=== PATIENT | male | born 1960 | race Caucasian/White ===

== ENCOUNTER 2020-11-05 14:57 | Inpatient (IN) | payer MEDICARE ==
[~2020-11-05] VITALS: Ht 172.7 cm; Wt 95.3 kg
--- NOTE | 2020-11-05 15:43 | NUR ---
PATIENT IS TACHY 89 AND IS HAVING DIFFICULTY BREATHING. PROVIDER HAS BEEN NOTIFIED.
[2020-11-05 17:05] LABS: HEMOGLOBIN 14.1 gm/dl (14.0-17.5); RED BLOOD COUNT 4.24 M/UL (4.20-5.50); WHITE BLOOD COUNT 10.2 K/UL (4.5-11.0)
[2020-11-05 17:31] LABS: BUN/CREATININE RATIO 16 (0-10)
--- NOTE | 2020-11-05 17:42 | NUR ---
CALLED PROVIDER TO INFORM OF CRITICAL LAB [facility] OF 8.7. WILL CONTINUE TO MONITOR
--- NOTE | 2020-11-05 23:48 | NUR ---
1st [facility] CRITICAL AT 8.7; MB% 2.8; ORDER TO RECHECK AFTER 6 HRS 2ND [facility] CRITICAL BUT IMPROVED AT 8.3; MB% ALSO IMPROVED AT 2.4
--- NOTE | 2020-11-06 00:50 | NUR ---
18G IN THE LEFT AC FOR CT WITH CONTRAST INSERTED;CALLED CT AND LET THEM KNOW AND TO CHECK ON STATUS. HE EXPLAINED PT'S ORDER WAS ROUTINE AND ER ORDERS ARE STAT AND HE IS 6 PT BEHIND. I EXPRESSED MY CONCERN AND ASK THAT HE LET ME KNOW IF HE COULD SQUEEZE HIM IN, I WOULD TRANSPORT HIM. AND HE SAID HE WOULD LET ME KNOW. WILL CONTINUE TO MONITOR PT STATUS.
[2020-11-06 04:10] LABS: HEMOGLOBIN 13.8 gm/dl (14.0-17.5); RED BLOOD COUNT 4.14 M/UL (4.20-5.50)
--- NOTE | 2020-11-06 04:16 | NUR ---
SENT COPY OF CT SCAN RESULTS TO DR. RODRIGUEZ; ORDER FOR ROCEPHIN 1G DAILY, AZITHROMYCIN 500MG DAILY.
[2020-11-06 04:33] LABS: BUN/CREATININE RATIO 19 (0-10)
[2020-11-06] MEDS ORDERED: METHADONE10 MG/1 ML PO (12:07)
[2020-11-07 05:59] LABS: HEMOGLOBIN 13.7 gm/dl (14.0-17.5); RED BLOOD COUNT 4.18 M/UL (4.20-5.50)
[2020-11-07 06:13] LABS: WHITE BLOOD COUNT 16.9 K/UL (4.5-11.0)
[2020-11-07 06:19] LABS: BUN/CREATININE RATIO 21 (0-10)
[2020-11-07 10:12] LABS: HBSAG SCREEN Negative (Negative); HEP A AB, IGM Negative (Negative); HEP B CORE AB, IGM Negative (Negative); HEP C VIRUS AB >11.0 (0.0-0.9)
[2020-11-08 05:15] LABS: HEMOGLOBIN 13.4 gm/dl (14.0-17.5); RED BLOOD COUNT 3.98 M/UL (4.20-5.50); WHITE BLOOD COUNT 12.2 K/UL (4.5-11.0)
[2020-11-08 05:53] LABS: BUN/CREATININE RATIO 22 (0-10)
[2020-11-09 06:13] LABS: HEMOGLOBIN 13.4 gm/dl (14.0-17.5); RED BLOOD COUNT 4.01 M/UL (4.20-5.50); WHITE BLOOD COUNT 12.6 K/UL (4.5-11.0)
[2020-11-09 06:29] LABS: BUN/CREATININE RATIO 21 (0-10)
[2020-11-10 03:44] LABS: HEMOGLOBIN 13.6 gm/dl (14.0-17.5); RED BLOOD COUNT 4.13 M/UL (4.20-5.50); WHITE BLOOD COUNT 11.3 K/UL (4.5-11.0)
[2020-11-10 04:09] LABS: BUN/CREATININE RATIO 24 (0-10)
--- NOTE | 2020-11-10 15:44 | NUR ---
SPOKE WITH PT'S AUDREY AND MADE HER AWARE THAT PT WAS BEING TRANSPORTED TO ICU, RM [phone]
[2020-11-11 05:36] LABS: BUN/CREATININE RATIO 24 (0-10)
[2020-11-11 07:00] LABS: HEMOGLOBIN 14.5 gm/dl (14.0-17.5); RED BLOOD COUNT 4.32 M/UL (4.20-5.50)
[2020-11-11 07:01] LABS: WHITE BLOOD COUNT 8.2 K/UL (4.5-11.0)
[2020-11-12 05:06] LABS: HEMOGLOBIN 13.6 gm/dl (14.0-17.5); RED BLOOD COUNT 4.11 M/UL (4.20-5.50)
[2020-11-12 05:51] LABS: BUN/CREATININE RATIO 31 (0-10)
[2020-11-13 03:03] LABS: HEMOGLOBIN 13.5 gm/dl (14.0-17.5); RED BLOOD COUNT 4.11 M/UL (4.20-5.50)
[2020-11-13 03:20] LABS: BUN/CREATININE RATIO 35 (0-10)
[2020-11-14 04:04] LABS: HEMOGLOBIN 14.2 gm/dl (14.0-17.5); RED BLOOD COUNT 4.17 M/UL (4.20-5.50); WHITE BLOOD COUNT 15.2 K/UL (4.5-11.0)
[2020-11-14 04:23] LABS: BUN/CREATININE RATIO 38 (0-10)
[2020-11-15 04:54] LABS: HEMOGLOBIN 14.3 gm/dl (14.0-17.5); RED BLOOD COUNT 4.22 M/UL (4.20-5.50)
[2020-11-15 04:58] LABS: WHITE BLOOD COUNT 19.1 K/UL (4.5-11.0)
[2020-11-15 05:31] LABS: BUN/CREATININE RATIO 43 (0-10)
[2020-11-15 12:13] LABS: ORGANISM ID Not indicated. (.); SPECIMEN SOURCE Urine (.); STREPTOCOCCUS PNEUMONIAE AG Negative (Negative)
[2020-11-15 15:23] LABS: BUN/CREATININE RATIO 36 (0-10)
[2020-11-16 05:21] LABS: HEMOGLOBIN 13.3 gm/dl (14.0-17.5); RED BLOOD COUNT 3.95 M/UL (4.20-5.50)
[2020-11-16 05:25] LABS: WHITE BLOOD COUNT 25.2 K/UL (4.5-11.0)
[2020-11-16 05:42] LABS: BUN/CREATININE RATIO 40 (0-10)
[2020-11-17 03:38] LABS: HEMOGLOBIN 13.5 gm/dl (14.0-17.5); RED BLOOD COUNT 4.04 M/UL (4.20-5.50); WHITE BLOOD COUNT 26.1 K/UL (4.5-11.0)
[2020-11-17 04:13] LABS: BUN/CREATININE RATIO 47 (0-10)
[2020-11-18 02:42] LABS: HEMOGLOBIN 11.8 gm/dl (14.0-17.5); RED BLOOD COUNT 3.52 M/UL (4.20-5.50); WHITE BLOOD COUNT 20.3 K/UL (4.5-11.0)
[2020-11-18 03:03] LABS: BUN/CREATININE RATIO 49 (0-10)
[2020-11-18 15:11] LABS: A/G RATIO 0.6 (0.7-1.7); ALBUMIN 1.9 g/dL (2.9-4.4); ALPHA-1-GLOBULIN 0.2 g/dL (0.0-0.4); ALPHA-2-GLOBULIN 0.5 g/dL (0.4-1.0); BETA GLOBULIN 0.8 g/dL (0.7-1.3); GAMMA GLOBULIN 2.1 g/dL (0.4-1.8); GLOBULIN, TOTAL 3.5 g/dL (2.2-3.9); IMMUNOFIXATION RESULT, SERUM Comment: (.); IMMUNOGLOBULIN A, QN, SERUM 328 mg/dL (90-386); IMMUNOGLOBULIN G, QN, SERUM 1807 mg/dL (603-1613); IMMUNOGLOBULIN M, QN, SERUM 733 mg/dL (20-172); M-SPIKE Comment: g/dL (Not Observed); PROTEIN, TOTAL, SERUM 5.4 g/dL (6.0-8.5)
[2020-11-19 02:41] LABS: HEMOGLOBIN 12.2 gm/dl (14.0-17.5); RED BLOOD COUNT 3.58 M/UL (4.20-5.50); WHITE BLOOD COUNT 18.6 K/UL (4.5-11.0)
[2020-11-19 03:10] LABS: BUN/CREATININE RATIO 48 (0-10)
[2020-11-19 23:51] LABS: HEMOGLOBIN 10.2 gm/dl (14.0-17.5); RED BLOOD COUNT 3.02 M/UL (4.20-5.50); WHITE BLOOD COUNT 11.9 K/UL (4.5-11.0)
--- NOTE | 2020-11-20 00:10 | NUR ---
PT'S BP REMAINS LOW. PT WAS PLACED ON LEVOPHED DRIP PER MD ORDER.
[2020-11-20 03:25] LABS: RED BLOOD COUNT 3.57 M/UL (4.20-5.50)
[2020-11-21 02:46] LABS: HEMOGLOBIN 11.8 gm/dl (14.0-17.5); RED BLOOD COUNT 3.46 M/UL (4.20-5.50); WHITE BLOOD COUNT 19.2 K/UL (4.5-11.0)
[2020-11-22 03:22] LABS: HEMOGLOBIN 11.2 gm/dl (14.0-17.5); RED BLOOD COUNT 3.3 M/UL (4.20-5.50); WHITE BLOOD COUNT 16.6 K/UL (4.5-11.0)
[2020-11-24 04:23] LABS: HEMOGLOBIN 9.4 gm/dl (14.0-17.5)
[2020-11-24 04:26] LABS: RED BLOOD COUNT 2.76 M/UL (4.20-5.50); WHITE BLOOD COUNT 8.8 K/UL (4.5-11.0)
[2020-11-25 05:26] LABS: HEMOGLOBIN 9.4 gm/dl (14.0-17.5); RED BLOOD COUNT 2.73 M/UL (4.20-5.50); WHITE BLOOD COUNT 8.7 K/UL (4.5-11.0)
[2020-11-26 05:47] LABS: HEMOGLOBIN 9.2 gm/dl (14.0-17.5); RED BLOOD COUNT 2.73 M/UL (4.20-5.50); WHITE BLOOD COUNT 10.4 K/UL (4.5-11.0)
[2020-11-27 05:52] LABS: HEMOGLOBIN 9.5 gm/dl (14.0-17.5); RED BLOOD COUNT 2.72 M/UL (4.20-5.50); WHITE BLOOD COUNT 9.8 K/UL (4.5-11.0)
[2020-11-27 12:15] LABS: HBSAG SCREEN Negative (Negative); HEP A AB, IGM Negative (Negative); HEP B CORE AB, IGM Negative (Negative); HEP C VIRUS AB >11.0 (0.0-0.9)
[2020-11-27 17:24] LABS: HEMOGLOBIN 10.6 gm/dl (14.0-17.5); RED BLOOD COUNT 3.11 M/UL (4.20-5.50)
[2020-11-28 05:52] LABS: RED BLOOD COUNT 2.04 M/UL (4.20-5.50); WHITE BLOOD COUNT 8.2 K/UL (4.5-11.0)
[2020-11-29 05:49] LABS: HEMOGLOBIN 8.9 gm/dl (14.0-17.5)
[2020-11-29 06:12] LABS: RED BLOOD COUNT 2.64 M/UL (4.20-5.50); WHITE BLOOD COUNT 12.9 K/UL (4.5-11.0)
[2020-11-30 05:42] LABS: RED BLOOD COUNT 2.72 M/UL (4.20-5.50)
[2020-11-30 17:03] LABS: HEMOGLOBIN 8.9 gm/dl (14.0-17.5); RED BLOOD COUNT 2.66 M/UL (4.20-5.50); WHITE BLOOD COUNT 11.6 K/UL (4.5-11.0)
[2020-12-02 05:30] LABS: HEMOGLOBIN 10.2 gm/dl (14.0-17.5)
[2020-12-02 05:46] LABS: RED BLOOD COUNT 3.06 M/UL (4.20-5.50); WHITE BLOOD COUNT 22.7 K/UL (4.5-11.0)
== END 2020-12-03 19:19 | disposition expired | DRG 207 ==
LOC: PROG CARE 14:57 → MED SURG 4 14:57 → CCU 14:57 → PROG CARE 11-12 18:51 → CCU 11-22 16:12
PROVIDERS: Internal Medicine; Internal Medicine Nephrology; Internal Medicine Pulmonary Disease; ADMIT Internal Medicine
PROC: 02HV33Z Insertion of Infusion Device into Superior Vena Cava, Percutaneous Approach (ICD-10-PCS; principal; 2020-11-27)
PROC: B548ZZA Ultrasonography of Superior Vena Cava, Guidance (ICD-10-PCS; 2020-11-27)
PROC: 5A1D70Z Performance of Urinary Filtration, Intermittent, Less than 6 Hours Per Day (ICD-10-PCS; 2020-11-27)
PROC: 30233L1 Transfusion of Nonautologous Fresh Plasma into Peripheral Vein, Percutaneous Approach (ICD-10-PCS; 2020-11-27)
PROC: 30233R1 Transfusion of Nonautologous Platelets into Peripheral Vein, Percutaneous Approach (ICD-10-PCS; 2020-11-27)
PROC: 0BH17EZ Insertion of Endotracheal Airway into Trachea, Via Natural or Artificial Opening (ICD-10-PCS; 2020-11-28)
PROC: 5A1955Z Respiratory Ventilation, Greater than 96 Consecutive Hours (ICD-10-PCS; 2020-11-28)
PROC: 5A1D70Z Performance of Urinary Filtration, Intermittent, Less than 6 Hours Per Day (ICD-10-PCS; 2020-11-28)
PROC: 0DH67UZ Insertion of Feeding Device into Stomach, Via Natural or Artificial Opening (ICD-10-PCS; 2020-11-28)
PROC: 3E0G76Z Introduction of Nutritional Substance into Upper GI, Via Natural or Artificial Opening (ICD-10-PCS; 2020-11-28)
PROC: 5A1D70Z Performance of Urinary Filtration, Intermittent, Less than 6 Hours Per Day (ICD-10-PCS; 2020-11-29)
PROC: 5A1D70Z Performance of Urinary Filtration, Intermittent, Less than 6 Hours Per Day (ICD-10-PCS; 2020-11-30)
DX: J18.9 Pneumonia, unspecified organism (principal); R65.21 Severe sepsis with septic shock; J80 Acute respiratory distress syndrome; A41.9 Sepsis, unspecified organism; K72.00 Acute and subacute hepatic failure without coma; K76.7 Hepatorenal syndrome; N17.0 Acute kidney failure with tubular necrosis; G93.41 Metabolic encephalopathy; I50.33 Acute on chronic diastolic (congestive) heart failure; D62 Acute posthemorrhagic anemia; K76.6 Portal hypertension; K56.7 Ileus, unspecified; J98.11 Atelectasis; F11.20 Opioid dependence, uncomplicated; E87.1 Hypo-osmolality and hyponatremia; J90 Pleural effusion, not elsewhere classified; B17.9 Acute viral hepatitis, unspecified; I13.0 Hypertensive heart and chronic kidney disease with heart failure and stage 1 through stage 4 chronic kidney disease, or unspecified chronic kidney disease; D61.818 Other pancytopenia; D68.4 Acquired coagulation factor deficiency; E46 Unspecified protein-calorie malnutrition; J44.0 Chronic obstructive pulmonary disease with (acute) lower respiratory infection; J44.1 Chronic obstructive pulmonary disease with (acute) exacerbation; J69.0 Pneumonitis due to inhalation of food and vomit; K70.31 Alcoholic cirrhosis of liver with ascites; R00.0 Tachycardia, unspecified; K70.10 Alcoholic hepatitis without ascites; Z51.5 Encounter for palliative care; I95.9 Hypotension, unspecified; N18.9 Chronic kidney disease, unspecified; D89.2 Hypergammaglobulinemia, unspecified; E87.5 Hyperkalemia; R60.1 Generalized edema; I27.20 Pulmonary hypertension, unspecified; Z20.822 Contact with and (suspected) exposure to COVID-19; G89.4 Chronic pain syndrome; F17.210 Nicotine dependence, cigarettes, uncomplicated; I10 Essential (primary) hypertension; R74.01 Elevation of levels of liver transaminase levels; E80.6 Other disorders of bilirubin metabolism; E87.6 Hypokalemia; E66.01 Morbid (severe) obesity due to excess calories; N28.1 Cyst of kidney, acquired; F10.10 Alcohol abuse, uncomplicated; D69.6 Thrombocytopenia, unspecified; E88.09 Other disorders of plasma-protein metabolism, not elsewhere classified; B18.2 Chronic viral hepatitis C; Z82.5 Family history of asthma and other chronic lower respiratory diseases; Z79.899 Other long term (current) drug therapy; Z86.19 Personal history of other infectious and parasitic diseases; Z82.3 Family history of stroke; Z28.21 Immunization not carried out because of patient refusal; Z68.31 Body mass index [BMI] 31.0-31.9, adult
CPT/HCPCS: ECHO; 31500; 36415; 36430; 36600; 71045; 74018; 80048; 80053; 80074; 80076; 80202; 80307; 81001; 82140; 82436; 82533; 82550; 82553; 82607; 82746; 82784; 82803; 82962; 83605; 83615; 83735; 83880; 83883; 83935; 84100; 84132; 84133; 84155; 84165; 84300; 84443; 84484; 85025; 85027; 85610; 85730; 86140; 86334; 86738; 86850; 86900; 86901; 86920; 86927; 87040; 87070; 87086; 87205; 87278; 87635; 87899; 90935; 90937; 93005; 93306; 93970; 94002; 94003; 94640; 94664; 94760; 97110; 97110-GP-CQ; 97162; 97164; 97166; 97168; 97530; 97530-GP-CQ; A6212; C1752; J0330; J0456; J0692; J0696; J1170; J1205; J1885; J1940; J2060; J2270; J2354; J2543; J2704; J2920; J3370; J7030; J7070; P9016; P9017; P9035; P9047; Q9967; U0002; U0003